=== PATIENT | female | born 1940 | race Caucasian/White ===

== ENCOUNTER 2017-09-29 08:42 | Inpatient (IN) ==
[2017-09-27 12:11] LABS: Basophils # (Auto) 0 K/mcL (0.0-0.3); Basophils % (Auto) 0.3 % (0.0-2.0); Eosinophils # (Auto) 0.1 K/mcL (0.0-0.7); Granulocytes % (Auto) 75.7 % (38.0-78.0); Lymphocytes # (Auto) 0.6 K/mcL (1.5-4.8); Lymphocytes % (Auto) 14.2 % (15.5-49.0); Mean Cell Volume 93.4 fL (80.0-100.0); Mean Corpuscular HGB Conc 34.4 g/dL (31.0-36.0); Mean Corpuscular Hemoglobin 32.1 pg (26.0-34.0); Monocytes # (Auto) 0.3 K/mcL (0.1-0.9); Monocytes % (Auto) 6.8 % (1.0-12.0); Platelet Count 210 K/mcL (140-440); RBC 4.25 M/mcL (4.00-5.20); Red Cell Distribution Width 12.9 % (11.5-14.5)
[2017-09-27 12:14] LABS: Blood Urea Nitrogen 14 mg/dl (8-23)
[2017-09-27 12:27] LABS: Appearance,Urine HAZY; Bilirubin,Urine NEG (NEG); Color,Urine YELLOW; Glucose,Urine (UA) NEGATIVE (NEG); Leukocyte Esterase,Urine NEG /uL (NEG); Protein,Urine NEG (NEG); Specific Gravity,Urine 1.016 (1.000-1.035); Urine Blood NEG mg/dL (<0.03); Urobilinogen,Urine NEG (NEG)
[~2017-09-29 08:42] MED LIST: CELECOXIB 200 MG CAPSULE PO SCH; KETOROLAC 30 MG, ROPIVACAINE HCL/PF 49.5 ML, EPINEPHrine 0.5 MG, 0.9 % SODIUM CHLORIDE ... IJ ONE; PREGABALIN 75 MG CAPSULE PO SCH; ceFAZolin 1 GM VIAL IV SCH; oxyCODONE 10 MG TAB.ER.12H PO SCH
[2017-09-29] MEDS ORDERED: MIDAZOLAM 5 MG/5 ML VIAL IV ONE (13:35)
[2017-09-29] MEDS ORDERED: LIDOCAINE HCL/PF 100 MG/5 ML SYRINGE IV ONE (13:35)
[2017-09-29] MEDS ORDERED: DEXAMETHASONE 10 MG/ML VIAL IV ONE (13:35)
[2017-09-29] MEDS ORDERED: ePHEDrine 50 MG/ML AMPUL IV ONE (13:35)
[2017-09-29] MEDS ORDERED: BUPIVACAINE PF 0.5% 30 ML VIAL IJ ONE (13:35)
[2017-09-29] MEDS ORDERED: PHENYLEPHRINE 10 MG/ML VIAL IV ONE (13:35)
[2017-09-29] MEDS ORDERED: ONDANSETRON 4 MG/2 ML VIAL IV ONE (13:35)
[2017-09-29] MEDS ORDERED: TRANEXAMIC ACID 1,000 MG/10 ML VIAL IV ONE (13:35)
[2017-09-29] MEDS ORDERED: PROPOFOL 200 MG/20 ML VIAL IV ONE (13:35)
[2017-09-29] MEDS ORDERED: GLYCOPYRROLATE 0.2 MG/ML VIAL IV ONE (13:35)
[2017-09-29] MEDS ORDERED: METHOCARBAMOL 1,000 MG/10 ML VIAL IV PRN (14:42)
[2017-09-29] MEDS ORDERED: ePHEDrine 50 MG/ML AMPUL IV PRN (14:42)
[2017-09-29] MEDS ORDERED: FLUMAZENIL 0.1 MG/ML ML IV PRN (14:42)
[2017-09-29] MEDS ORDERED: fentaNYL 100 MCG/2 ML VIAL IV PRN (14:42)
[2017-09-29] MEDS ORDERED: ATROPINE SULFATE 0.4 MG/ML VIAL IV PRN (14:42)
[2017-09-29] MEDS ORDERED: METOPROLOL TARTRATE 5 MG/5 ML VIAL IV PRN (14:42)
[2017-09-29] MEDS ORDERED: NALOXONE HCL 0.4 MG/ML VIAL IV PRN (14:42)
[2017-09-29] MEDS ORDERED: ONDANSETRON 4 MG/2 ML VIAL IV PRN ×2 (14:42→15:08)
[2017-09-29] MEDS ORDERED: MEPERIDINE 25 MG/ML SYRINGE IV PRN (14:42)
[2017-09-29] MEDS ORDERED: IPRATROPIUM/ALBUTEROL 3 ML AMPUL.NEB NEB PRN (14:42)
[2017-09-29] MEDS ORDERED: diphenhydrAMINE 50 MG/ML VIAL IV PRN (14:42)
[2017-09-29] MEDS ORDERED: PROMETHAZINE 25 MG/ML VIAL IV PRN (14:42)
[2017-09-29] MEDS ORDERED: LACTATED RINGERS 1,000 ML IV SCH (14:45)
[2017-09-29] MEDS ORDERED: TRANEXAMIC ACID 1,000 MG/10 ML VIAL IV SCH (15:08)
[2017-09-29] MEDS ORDERED: BISACODYL 10 MG SUPP.RECT PR PRN (15:08)
[2017-09-29] MEDS ORDERED: BENZOCAINE/MENTHOL 1 LOZENGE PO PRN (15:08)
[2017-09-29] MEDS ORDERED: FLEETS ADULT ENEMA PR PRN (15:08)
[2017-09-29] MEDS ORDERED: POLYETHYLENE GLYCOL 3350 17 GM PACKET PO PRN (15:08)
[2017-09-29] MEDS ORDERED: MAGNESIUM HYDROXIDE 30 ML ORAL.SUSP PO PRN (15:08)
--- NOTE | 2017-09-29 15:08 | Brief Operative Note ---
Date of procedure: 09/29/17 Pre-op diagnosis: Left knee osteoarthritis Post-op diagnosis: same Procedure: Left robotic assisted total knee arthroplasty Grafts/Implants: Yes ([employer] Triathlon CR 2 femur, 2 tibia, 31 patella, 9mm CS insert) Anesthesia: spinal, GLMA Findings: arthritis Complications: none Surgeon: Mikey Bustos Cinder Crane Operator: Dedrick Sewell Estimated blood loss (cc): 30 Specimens Removed/Pathology: none sent Condition: stable Disposition: PACU
--- NOTE | 2017-09-29 15:59 | XRay Report ---
CLINICAL INFORMATION: Reason for Exam:Post-op total knee COMPARISON: None. FINDINGS: Total knee prostheses is anatomically aligned. No significant osseous abnormality. Periarticular gas and soft tissue swelling seen as expected. IMPRESSION: Negative Interpreted and Authenticated by: Gabino Khan 09/29/17
[2017-09-29] MEDS: 0.9 % SODIUM CHLORIDE 1,000 ML IV SCH (16:20)
[2017-09-29] MEDS: KETOROLAC 15 MG/ML VIAL IV SCH ×2 (17:50→23:54)
[2017-09-29] MEDS: ASPIRIN 325 MG ENTERIC COATED TABLET PO SCH (20:26)
[2017-09-29] MEDS: DOCUSATE SODIUM 100 MG CAPSULE PO SCH (20:26)
[2017-09-29] MEDS: oxyCODONE/APAP 5/325MG TABLET PO PRN (20:26)
[2017-09-29] MEDS: 0.9 % SODIUM CHLORIDE 10 ML SYRINGE IV SCH (20:27)
[2017-09-29] MEDS: ceFAZolin 1 GM VIAL IV SCH (20:27)
[2017-09-29] MEDS ORDERED: SIMVASTATIN 20 MG TABLET PO SCH (21:00)
[2017-09-29] MEDS ORDERED: LOSARTAN 50 MG TABLET PO SCH (21:00)
[2017-09-29] MEDS ORDERED: SENNOSIDES 1 TABLET PO SCH (21:00)
[2017-09-30] MEDS: oxyCODONE/APAP 5/325MG TABLET PO PRN ×2 (01:50→11:36)
[2017-09-30] MEDS: ceFAZolin 1 GM VIAL IV SCH (04:55)
[2017-09-30] MEDS: KETOROLAC 15 MG/ML VIAL IV SCH (05:09)
[2017-09-30] MEDS: 0.9 % SODIUM CHLORIDE 1,000 ML IV SCH ×2 (05:10→11:19)
[2017-09-30] MEDS: 0.9 % SODIUM CHLORIDE 10 ML SYRINGE IV SCH (05:10)
[2017-09-30] MEDS ORDERED: LEVOTHYROXINE 75 MCG TABLET PO SCH (07:30)
--- NOTE | 2017-09-30 07:36 | Discharge Summary ---
Providers - Providers Patient information: Note initiated : 09/30/17 at 7:33 am Service Date, if different from initiated Date: [] Patient: Kailee Gifford 77 y/o F admitted on 09/29/17 for Left Total Arthroplasty Knee SERGIO. Chief Complaint: [] Discharge date: 09/30/17 Hospitalization Hospital course: Pt was admitted for a L TKA. Pt underwent the procedure on the day of admission. Pt spent one night on the floor for IV pain meds, IV abx, and PT. Pt was discharged on post-op day 1. Will f/u at [facility] in 10-14 days. Discharge diagnosis: L knee osetoarthrosis Exam - Exam Clean and dry: No (shadow drainage) Weight bearing status: as tolerated Ortho Discharge - TKA - Patient Instructions Diet: Regular Diet Activity: activity as tolerated Total Knee Protocol: For Total Knee: Start ROM RIGOBERTO with stationary bike or rocking chair. Work on gaining full extension of knee. Posterior dislocation precautions provided. Hip abductor strengthening and gait training instructions provided. Apply Cryocuff as instructed. Dressing Care: May shower in 2 days Patient Education: Total Knee Replacement (DC) - Follow Up Plan Follow Up Appointments: Dedrick Sewell PA-C [Physician Funeral Director And Embalmer] - 10/14/17 11:20 am Disposition: Home, Self-Care Prognosis: Good Rehab Potential: Good Overall status at discharge: patient is progressing back to baseline - Orders For Discharge Prescriptions: Aspirin [Ecotrin] 325 mg PO BID #30 tab.ec HYDROcodone/APAP 10/325MG [Satartia 10-325Mg] 1 - 2 tab PO Q4H PRN #90 tab PRN Reason: Pain Pending Studies Resuscitation Status Full Code Diet Regular Diet Start WedSep 29 Dinner Aspirin (Ecotrin) 325 mg PO BID [facility] [place] Last Admin: 09/29/17 20:26 Dose: 325 mg Docusate Sodium (Colace) 100 mg PO BID [facility] [place] Last Admin: 09/29/17 20:26 Dose: 100 mg Sodium Chloride (Sodium Chloride 0.9%) 1,000 mls @ 100 mls/hr IV .Q10H [facility] [place] Last Admin: 09/30/17 05:10 Dose: Not Given Infusion: 09/30/17 05:10 Dose: 0 mls/hr Admin: 09/29/17 16:20 Dose: 100 mls/hr Ketorolac Tromethamine (Toradol) 15 mg IV Q6 [facility] [place] Stop: 10/01/17 12:01 Last Admin: 09/30/17 05:09 Dose: 15 mg Admin: 09/29/17 23:54 Dose: 15 mg Admin: 09/29/17 17:50 Dose: 15 mg Levothyroxine Sodium (Synthroid) 75 mcg PO ACB [facility] [place] Last Admin: 09/30/17 07:24 Dose: 75 mcg Losartan Potassium (Cozaar) 100 mg PO HS [facility] [place] Last Admin: 09/29/17 20:26 Dose: 100 mg Oxycodone/Acetaminophen (Percocet 5-325 Mg) 0 tab PO Q4HP PRN PRN Reason: PAIN LEVEL 3-6 Last Admin: 09/30/17 01:50 Dose: 1 tab Admin: 09/29/17 20:26 Dose: 1 tab Senna (Senokot) 2 tab PO HS [facility] [place] Last Admin: 09/29/17 20:26 Dose: 2 tab Simvastatin (Zocor) 20 mg PO HS [facility] [place] Last Admin: 09/29/17 20:26 Dose: 20 mg Sodium Chloride (Saline Flush) 10 ml IV Q8 [facility] [place] Last Admin: 09/30/17 05:10 Dose: Not Given Admin: 09/29/17 20:27 Dose: Not Given Shift Summary 09/30/17 04:05 Shift Summary by Yakov Jauregui up w/SBA and FWW, gait steady, will SL IV after 2nd dose of ABO, medicated with scheduled toradol and Percocet 5/325mg 1 tab twice, dsg with marked shadow drainage this AM, cryocuff used twice this shift, AVB on t/o night, pleasant and cooperative with cares, voiding in BR - PVR minimal, unsure if will d/c home with today or tomorrow, Initialized on 09/30/17 04:05 - END OF NOTE
[2017-09-30] MEDS ORDERED: ESTRADIOL 1 MG TABLET PO SCH (09:00)
[2017-09-30] MEDS: ASPIRIN 325 MG ENTERIC COATED TABLET PO SCH (09:16)
[2017-09-30] MEDS: DOCUSATE SODIUM 100 MG CAPSULE PO SCH (09:17)
--- NOTE | 2017-09-30 09:56 | Operative Note ---
DATE OF OPERATION: 09/29/2017 PREOPERATIVE DIAGNOSIS: Left knee severe osteoarthritis. POSTOPERATIVE DIAGNOSIS: Left knee severe osteoarthritis. PROCEDURE PERFORMED: Left robotic-assisted total knee arthroplasty placing a [employer] Triathlon size 2 cruciate retaining femoral component, a size 2 tibial baseplate, an X3 CS 9 mm insert, and a 31 mm patellar button. SURGEON: Mikey Bustos M.D. FORENSIC SPECIALIST: Tony Sewell PA-C. ANESTHESIA: Spinal plus general. DRAINS: None. SPECIMENS: Bone cuts which were discarded. BLOOD LOSS: Less than 30 mL. COMPLICATIONS: None. POSTOPERATIVE CONDITION: Stable. INDICATIONS FOR SURGERY: This is a 77-year-old female who has had longstanding worsening left knee pain. Radiographs showed severe toyn-qh-acrb osteoarthritis. FINDINGS AT SURGERY: She had severe arthritis of multiple compartments. Post implantation showed good limb alignment, stability, and patellar tracking. PROCEDURE IN DETAIL: The patient had been seen preoperatively and informed consent had been obtained after discussion of risks and benefits of surgery. Risks including, but not limited to, bleeding, possibly requiring transfusion; infection, possibly requiring implant removal and prolonged IV antibiotics; injury to nerves, blood vessels or other surrounding structures; anesthetic risks; incomplete or no resolution of symptoms; stiffness; swelling; pain; instability; DVT and pulmonary embolus risks; and the possibility of needing further revision surgery. She understood these risks and wished to proceed. Correct operative site was marked and then patient received spinal anesthesia. She was then taken to the operating room and LMA general given. The left lower extremity was carefully prepped and draped in normal sterile fashion, and a time-out was performed verifying patient name, operative site, and plan. Esmarch was used to exsanguinate the extremity and tourniquet was inflated. A midline incision was made with a scalpel through skin and subcutaneous tissue. Irrisept was irrigated and then a medial parapatellar arthrotomy made. Subperiosteal exposure was done of the anterior medial tibia and then distal anterior cortex of the femur was also exposed subperiosteally with Bovie. The retropatellar fat pad was excised, as well as anterior horns of the menisci, and the ACL was transected. Two stab incisions were made over the tibia and two over the femur, and then bicortical pins placed and the arrays were connected. We placed our femoral and tibial checkpoints. We then checked our hip center of rotation and medial and lateral malleoli with the green probe. We also double-checked our checkpoints. We then used the blue probe and did our mapping. Once this was completed, we removed osteophytes with a rongeur. We then checked our flexion and extension gaps. We adjusted our gaps until we had 17 mm on all but one number which was 18 mm. Our patellar tracking looked good, so we went ahead and brought the robot in. Using the robotic arm, we made our tibial bone cuts, followed by our posterior cut, our anterior cut and our anterior chamfer. We then switched blades and made our distal cut and our posterior chamfer cut. Once we were done making cuts, we went ahead and removed the bone fragments. We subluxed the tibia forward and positioned our tibial implant with external rotation as the bone coverage would allow. This was pinned into place. We used a [employer] reamer and keel punch. The keeled tibial trial was placed. The femur was elevated and a curved osteotome and curet were used to remove posterior osteophytes. The femoral trial component was impacted and pinned and then we drilled our peg holes. A 9 insert trial was impacted. We then checked our knee in full extension. We were about 6 degrees short of full. We then prepared our patella. Pre-resection was 21 mm. Post-resection was about 12 mm which was done freehand technique. We then sized this to a 31 which was medialized maximally and drill holes made. We then did a limited lateral facetectomy. We checked our patellar tracking which was good, so we went ahead and opened implants. Trial components were removed. We irrigated the joint with Irrisept. After waiting a minute, we pulse lavaged with saline. We then used the CO2 gun to clean and dry the cancellous bone surfaces. We then used antibiotic cement, cementing the tibia followed by the femur. Excess cement was removed and a 9 insert trial was placed. The knee was taken into full extension and excess cement removed. We then cemented the patellar button as well. While cement was hardening, we filled the joint with Irrisept and then injected pain cocktail in the subcutaneous and pericapsular tissues. After cement had fully hardened, we pulse lavaged copiously with saline. The knee was flexed up. Excess cement was removed. We removed the trial insert. We injected pain cocktail in the posterior capsule and then filled the joint with Irrisept and impacted a CS insert. We chose the CS because the bony insertion of the PCL on the tibia appeared to be partially avulsing when we were cementing. The knee was then taken to about 45 degrees of flexion. We pulse lavaged with saline. Interrupted FiberWire [id number] stitches were used around the superior quadrant of the patella. Inferior quadrant was closed with interrupted #1 Vicryl [id number]. Running #1 Vicryl was used for patellar tendon and quad tendon. We did remove checkpoints prior to closure. We then used Irrisept again, after a minute pulse lavaged, and then 2-0 Monocryl for subcutaneous and ligia for skin. The femoral and tibial pins were removed and ligia used for closure. Xeroform and sterile dressing were applied. Tourniquet was released. Patient was awakened, extubated, and transferred to recovery in stable condition. BJShayne:cahntell Job ID: [id number] Doc ID: [id number] Mikey Bustos MD
== END 2017-09-30 12:07 | disposition home or self-care (01) | DRG 470 ==
LOC: MEDSUR 08:42
PROVIDERS: ADMIT Orthopaedic Surgery; ATTEND Orthopaedic Surgery